=== PATIENT | male | born 1990 | race Caucasian/White ===

== ENCOUNTER 2017-03-07 02:44 | Emergency (ER) | payer OTHER ==
--- NOTE | 2017-03-07 20:49 | EDPHY ---
H & P HPI/ROS: HPI CHIEF COMPLAINT: Fall out of [facility] bunk. HISTORY OF PRESENT ILLNESS: This patient very pleasant 26-year-old male, who presents emergency room by police after he fell out of his top bunk in [facility]. Complaining of right hip pain bilateral knee pain, bilateral elbow pain. Denies headache, neck pain chest pain or shortness of breath. Past Medical History: Anxiety. Past Surgical History: Denies surgical history Social History: denies daily use drugs alcohol tobacco products Family History: Noncontributory ROS REVIEW OF SYSTEMS: A comprehensive 10 point review of systems is otherwise negative aside from elements mentioned in the history of present illness. Exam Constitutional triage nursing summary reviewed, vital signs reviewed, awake/ alert. Eyes normal conjunctivae and sclera, EOMI, PERRLA. HENT normal inspection, atraumatic, moist mucus membranes, no epistaxis, neck supple/ no meningismus, no raccoon eyes. Respiratory clear to auscultation bilaterally, normal breath sounds, no respiratory distress, no wheezing. Cardiovascular rate normal, regular rhythm, no murmur, no edema, distal pulses normal. Gastrointestinal soft, non-tender, no rebound, no guarding, normal bowel sounds, no distension, no pulsatile mass. Genitourinary no CVA tenderness. Musculoskeletal full range of motion both elbows, no significant trauma to both elbows, arms neurovascular intact, distal good pulses, bilateral knee exam shows no significant trauma abrasion to left knee, full range of motion, no crepitus no significant swelling, also tender palpation right lateral hip. no midline vertebral tenderness, full range of motion, no calf swelling, no tenderness of extremities, no meningismus, good pulses, neurovascularly intact. Skin pink, warm, & dry, no rash, skin atraumatic. Neurologic awake, alert and oriented x 3, AAOx3, moves all 4 extremities equally, motor intact, sensory intact, CN II-XII intact, normal cerebellar, normal vision, normal speech. Psychiatric normal mood/affect. Heme/Lymph/Immune no lymphadenopathy. Differential Diagnosis: Includes but is not limited to in a particular order multiple contusions, soft tissue injury, elbow contusion, knee contusions, hip fracture. Medical Decision Making: Plan for this patient ibuprofen 800 mg here in emergency room, x-ray right hip. His knee exam and elbow exam are unremarkable. Re-evaluation: 0316AM: Ibuprofen 800 mg was given. Does feel slightly better. ED x-ray right hip: negative for acute fracture. or Malalignment. 0316AM: I did update this patient she is agreeable for discharge. Discharge back to [facility]. Source: Patient, Police Allergies/Adverse Reactions: No Known Allergies Allergy (Unverified 03/07/17 09:56) Home Medications: Medication Instructions Recorded Amitriptyline HCl 03/07/17 Buspar (*) 03/07/17 Medical Decision Making - Diagnostics Imaging Results: Imaging Impressions Hip X-Ray 03/07/17 02:32 Impression: Femoral neck benign synovial implosion pit vs osteoid osteoma vs lesion of other etiology plus minus associated insufficiency fracture. Recommend MRI Hip, without and with contrast, for further evaluation. Results discussed with Dr. Kerr at 8:17 AM. Departure - Departure Disposition: Home, Routine, Self-Care Clinical Impression: Contusion, hip Qualifiers: Encounter type: initial encounter Laterality: right Qualified Code(s): S70.01XA - Contusion of right hip, initial encounter Condition: Good Instructions: Hip Contusion (ED) Referrals: NONE *PRIMARY CARE P,. [Primary Care Provider] - As per Instructions
== END 2017-03-07 03:30 | disposition home or self-care (01) ==
DX: S70.01XA Contusion of right hip, initial encounter (principal); W06.XXXA Fall from bed, initial encounter; Y92.149 Unspecified place in prison as the place of occurrence of the external cause

== ENCOUNTER 2017-03-07 09:46 | Emergency (ER) | payer OTHER ==
[~2017-03-07 09:46] MED LIST: IBUPROFEN 200 MG TAB PO ONE; IBUPROFEN 600 MG TAB PO ONE
[2017-03-07 09:52] VITALS: O2SAT 95
--- NOTE | 2017-03-07 12:52 | EDPHY ---
HPI/HX/ROS/PE/MDM Narrative: CHIEF COMPLAINT: Right hip pain. HPI: The patient is a 26-year-old male who was seen earlier this morning by Dr. Alvarado for right hip pain. At that time his x-ray was read as negative and he was sent home. Dr. Swain reviewed this study in the morning and called me to inform me that this was suspicious for possible occult fracture or bone lesion. He recommend MRI. The patient was contacted in [facility] and instructed to return for MRI. The patient complains only of continued pain in his hip. No new symptoms. REVIEW OF SYSTEMS: Aside from elements discussed in the HPI, a comprehensive 10-point review of systems was reviewed and is negative. PHYSICAL EXAM: General:Patient is alert, in no acute distress. Extremities: Normal appearance. Full range of motion. Neuro: Oriented x3. Normal motor function. Normal sensory function. MDM: MRI was ordered on this patient to evaluate possible fracture. This was read by Dr. Swain as showing only a benign lesion. No further workup or treatment is indicated. - Data Points Imaging: Discussed imaging studies w/ manager call center Radiologist, I viewed and interpreted images myself General Time Seen by Provider: 03/07/17 09:50 Initial Vital Signs: Initial Vital Signs Temperature (C) 36.6 C 03/07/17 09:51 Heart Rate 60 03/07/17 09:51 Respiratory Rate 14 03/07/17 09:51 Blood Pressure 124/69 H 03/07/17 09:51 O2 Sat (%) 95 03/07/17 09:51 O2 Delivery Mode Room Air Allergies/Adverse Reactions: No Known Allergies Allergy (Unverified 03/07/17 09:56) Home Medications: Medication Instructions Recorded Amitriptyline HCl 03/07/17 Buspar (*) 03/07/17 Departure - Departure Disposition: Home, Routine, Self-Care Clinical Impression: Contusion, hip Condition: Good Instructions: Hip Contusion (ED) Additional Instructions: This patient is medically clear for transport back to [facility]. Referrals: NONE *PRIMARY CARE P,. [Primary Care Provider] - As per Instructions
[2017-03-07 13:11] VITALS: BP 108/68; PULSE 57; RESP 16; TEMP 98.2
== END 2017-03-07 13:02 | disposition home or self-care (01) ==
DX: S70.01XD Contusion of right hip, subsequent encounter (principal); X58.XXXD Exposure to other specified factors, subsequent encounter